=== PATIENT | male | born 1985 | race Hispanic/Latino ===

== ENCOUNTER 2021-09-19 17:14 | Emergency (ER) | payer BC ==
[~2021-09-19] VITALS: Ht 182.9 cm; Wt 111.6 kg
[2021-09-19] MEDS ORDERED: ASPIRIN 325 MG TAB EC PO STA (17:41)
[2021-09-19] MEDS ORDERED: SODIUM CHLORIDE FLUSH 10 ML SYR INJ PRN (17:45)
[2021-09-19 17:59] LABS: BASOPHILS # (AUTO) 0.1 (0.0-0.1); BASOPHILS % 0.7 % (0.0-1.0); EOSINOPHILS # (AUTO) 0.1 (0.0-0.4); EOSINOPHILS % 1.3 % (0.0-6.0); HEMATOCRIT 52.1 % (38.2-49.6); HEMOGLOBIN 17.9 g/dL (14.0-18.0); LYMPHOCYTES # (AUTO) 3.3 (1.0-3.2); LYMPHOCYTES % 34.2 % (18.0-39.1); MEAN CORPUSCULAR HEMOGLOBIN 31.1 pg (28-32); MEAN CORPUSCULAR HGB CONC 34.4 g/dL (31-35); MEAN CORPUSCULAR VOLUME 90.6 fL (81-99); MONOCYTES # (AUTO) 0.8 (0.2-0.8); MONOCYTES % 8.8 % (4.4-11.3); NEUTROPHILS # (AUTO) 5.2 (2.1-6.9); NEUTROPHILS % 54.4 % (38.7-80.0); PLATELET COUNT 332 x10e3/uL (140-360); RED BLOOD COUNT 5.75 x10e6/uL (4.3-5.7)
[2021-09-19 18:22] LABS: ALBUMIN 4.9 g/dL (3.5-5.0); ALBUMIN/GLOBULIN RATIO 1.3 (0.8-2.0); ANION GAP 17.3 mmol/L (8-16); CALCIUM 9.9 mg/dL (8.4-10.2); CREATININE, SERUM 1.01 mg/dL (0.72-1.25); POTASSIUM 3.3 mmol/L (3.5-5.1)
[2021-09-19] MEDS ORDERED: LABETALOL HCL 5 MG/ML 20ML VIAL IV ONE (18:30)
[2021-09-19 18:31] LABS: INR 0.92; PROTHROMBIN TIME 13.1 seconds (11.9-14.5)
[2021-09-19 18:32] LABS: PARTIAL THROMBOPLASTIN TIME 30.7 seconds (23.8-35.5)
[2021-09-19] MEDS ORDERED: POTASSIUM CHLORIDE 20 MEQ TAB CR PO STA (18:36)
[2021-09-19 19:06] VITALS: BP 142/108
== END 2021-09-19 19:12 | disposition home or self-care (01) ==
LOC: ER 17:37
DX: R07.89 Other chest pain (principal); E11.65 Type 2 diabetes mellitus with hyperglycemia; E87.6 Hypokalemia; I10 Essential (primary) hypertension; R94.31 Abnormal electrocardiogram [ECG] [EKG]
CPT/HCPCS: 36415; 71045; 80053; 84484; 85025; 85610; 85730; 93005; 99284; J3490